=== PATIENT | male | born 1980 | race American Indian/Alaskan Native ===

== ENCOUNTER 2021-01-18 19:52 | Observation (INO) | payer BC, OTHER ==
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
--- NOTE | 2021-01-18 21:04 | XRay Report ---
LEFT RIBS HISTORY: COMPARISON: None. TECHNIQUE: 4 views of the left ribs were obtained. FINDINGS: Bones: No fracture or dislocation. Joint spaces: Maintained. Soft tissues: No significant abnormality. Additional findings: None. IMPRESSION: 1. No significant abnormality. Signer Name: Maxwell Lagos MD Signed: 01/18/2021 9:00 PM Workstation Name: [id number]
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
[2021-01-18] MEDS ORDERED: SODIUM CHLORIDE 0.9% 1000 ML 1,000 ML IV ONE (21:23)
[2021-01-18] MEDS ORDERED: MORPHINE 4 MG/1 ML INJ IV ONE (21:23)
[2021-01-18 21:46] LABS: Hematocrit 41.5 % (35.5-45.6); Hemoglobin 14.2 gm/dl (11.8-15.2); Mean Corpuscular HGB Conc 34 % (32-34); Mean Corpuscular Volume 94 fl (84-94); Platelet Count 175 K/mm3 (140-440); Red Blood Count 4.41 M/mm3 (3.65-5.03)
[2021-01-18 22:10] LABS: Alanine Aminotransferase 24 units/L (7-56); Albumin 4.6 g/dL (3.9-5); BUN/Creatinine Ratio 19; Blood Urea Nitrogen 15 mg/dL (9-20); Calcium 9.3 mg/dL (8.4-10.2); Hemolysis Index 15
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
[2021-01-18 23:56] LABS: Bilirubin,Urine NEG (Negative); Blood,Urine NEG (Negative); Color,Urine Yellow (Yellow); Mucus,Urine FEW /HPF; Protein,Urine <15 mg/dL mg/dL (Negative); Urobilinogen,Urine < 2.0 mg/dL (<2.0)
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
[2021-01-19] MEDS ORDERED: ACETAMINOPHEN 325 MG TAB PO PRN (01:04)
[2021-01-19] MEDS ORDERED: ALBUTEROL 2.5 MG/3 ML NEBU IH PRN (01:04)
[2021-01-19] MEDS ORDERED: ONDANSETRON 4 MG/2 ML INJ IV PRN (01:04)
[2021-01-19] MEDS ORDERED: MORPHINE 2 MG/1 ML INJ IV PRN (01:04)
[2021-01-19] MEDS ORDERED: hydrALAZINE 20 MG/1 ML INJ IV PRN (01:07)
[2021-01-19] MEDS ORDERED: traMADol 50 MG TAB PO PRN (01:08)
[2021-01-19] MEDS ORDERED: IBUPROFEN 800 MG TAB PO PRN (01:08)
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
[2021-01-19] MEDS: IPRATROPIUM/ALBUTEROL SULFATE 3 ML AMPUL.NEB IH SCH ×4 (02:24→20:51)
[2021-01-19] MEDS: SODIUM CHLORIDE 0.9% 1000 ML 1,000 ML IV SCH ×3 (03:16→21:43)
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
[2021-01-19] MEDS: HEPARIN 5,000 UNIT/1 ML VIAL SUB-Q SCH ×3 (05:24→21:39)
[2021-01-19] MEDS: FAMOTIDINE 10 MG TAB PO SCH ×2 (09:47→21:37)
[2021-01-19] MEDS ORDERED: PENICILLIN VK 500 MG PO SCH (10:00)
[2021-01-19] MEDS ORDERED: PENICILLIN V POTASSIUM 250 MG TAB PO SCH (10:00)
--- NOTE | 2021-01-19 10:52 | Electrocardiograph Report ---
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
--- NOTE | 2021-01-19 13:57 | Progress Note ---
Subjective Date of service: 01/19/21 Interval history: Patient seen and examined Chart reviewed Lab results reviewed All x-rays and CT of the chest results reviewed Ortho consulted regarding dislocation of the right shoulder Informed Ortho office We will discharge patient once cleared by orthopedic surgery Pain control Objective - Constitutional Vitals: Vital Signs - 12hr 01/19/21 01/19/21 01/19/21 02:00 03:06 03:15 Temperature 99.1 F Pulse Rate 59 L 55 L 56 L Pulse Rate [ Anterior Bilateral Throughout] Pulse Rate [ Apical] Respiratory 13 18 Rate Respiratory Rate [Anterior Bilateral Throughout] Blood Pressure 113/69 132/87 Blood Pressure [Left] O2 Sat by Pulse 99 97 Oximetry 01/19/21 01/19/21 01/19/21 07:43 08:06 12:20 Temperature 98.0 F Pulse Rate 59 L Pulse Rate [ 54 L Anterior Bilateral Throughout] Pulse Rate [ 78 Apical] Respiratory 17 17 Rate Respiratory 18 Rate [Anterior Bilateral Throughout] Blood Pressure Blood Pressure 123/80 [Left] O2 Sat by Pulse 98 98 99 Oximetry 01/19/21 01/19/21 12:29 13:02 Temperature 97.6 F Pulse Rate 55 L Pulse Rate [ 64 Anterior Bilateral Throughout] Pulse Rate [ Apical] Respiratory 16 Rate Respiratory 18 Rate [Anterior Bilateral Throughout] Blood Pressure Blood Pressure 128/83 [Left] O2 Sat by Pulse 97 Oximetry - Labs CBC & Chem 7: 01/18/21 21:32 01/18/21 21:32 Labs: Abnormal lab results 01/18/21 01/18/21 Range/Units 21:32 21:32 WBC 13.6 H (4.5-11.0) K/mm3 Glucose 119 H (75-100) mg/dL Total Creatine Kinase 378 H (55-170) units/L
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
[2021-01-20 05:41] LABS: Basophils # (Auto) 0.1 K/mm3 (0.0-0.1); Basophils % (Auto) 0.8 % (0.0-1.8); Eosinophils # (Auto) 0.2 K/mm3 (0.0-0.4); Eosinophils % (Auto) 2.9 % (0.0-4.3); Hematocrit 39.6 % (35.5-45.6); Hemoglobin 13.4 gm/dl (11.8-15.2); Lymphocytes # (Auto) 2.9 K/mm3 (1.2-5.4); Lymphocytes % (Auto) 42.7 % (13.4-35.0); Mean Corpuscular HGB Conc 34 % (32-34); Mean Corpuscular Volume 95 fl (84-94); Monocytes # (Auto) 0.8 K/mm3 (0.0-0.8); Monocytes % (Auto) 12.3 % (0.0-7.3); Platelet Count 141 K/mm3 (140-440); Red Blood Count 4.15 M/mm3 (3.65-5.03)
[2021-01-20 06:00] LABS: Blood Urea Nitrogen 6 mg/dL (9-20); Calcium 8.2 mg/dL (8.4-10.2); Hemolysis Index 18
[2021-01-20] MEDS: HEPARIN 5,000 UNIT/1 ML VIAL SUB-Q SCH (06:01)
[2021-01-20 06:04] LABS: BUN/Creatinine Ratio 9
[2021-01-20] MEDS: FAMOTIDINE 10 MG TAB PO SCH (09:24)
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
[2021-01-20 12:36] VITALS: BP 127/85
== END 2021-01-20 13:15 | disposition home or self-care (01) ==
LOC: ED 19:52 → 4A 01-19 00:51
PROVIDERS: ADMIT Hospitalist; ATTEND Internal Medicine
DX: S43.101A Unspecified dislocation of right acromioclavicular joint, initial encounter (principal); S27.321A Contusion of lung, unilateral, initial encounter; R10.32 Left lower quadrant pain; T14.8XXA Other injury of unspecified body region, initial encounter; D72.829 Elevated white blood cell count, unspecified; F17.200 Nicotine dependence, unspecified, uncomplicated; V29.9XXA Motorcycle rider (driver) (passenger) injured in unspecified traffic accident, initial encounter; Y93.55 Activity, bike riding; Y92.410 Unspecified street and highway as the place of occurrence of the external cause
CPT/HCPCS: 36415; 70450; 71101; 71260; 73030; 73590; 74177; 80048; 80053; 81001; 82550; 83690; 83735; 85025; 85027; 93005; 94640; 96361; 96372; 96374; 97161; 99285; G0378; J1644; J2270; J7030; Q9967